=== PATIENT | male | born 1940 | race Caucasian/White ===

== ENCOUNTER 2022-08-29 12:29 | Outpatient (CLI) | payer MEDICARE, OTHER | END 2022-08-29 12:30 | disposition critical access hospital (66) | LOC: EMS 12:29 | DX: R55 Syncope and collapse (principal) | CPT/HCPCS: A0425; A0427 ==

== ENCOUNTER 2022-08-29 12:32 | Emergency (ER) | payer MEDICARE, OTHER ==
--- NOTE | 2022-08-29 12:53 | XRAY Report ---
PROCEDURE: Chest 1 View X-Ray INDICATIONS: Chest Pain TECHNIQUE: One view of the chest was acquired. COMPARISON: None. FINDINGS: Surgical changes and devices: Postmedian sternotomy and CABG. Lungs and pleura: No pleural effusions or pneumothorax. Lungs are clear. Mediastinum: Mediastinal contours appear normal. Asymmetric elevation of the right hemidiaphragm. H eart size is normal. Bones and chest wall: No suspicious bony lesions. Overlying soft tissues appear unremarkable. IMPRESSION: No acute cardiopulmonary abnormality. Reviewed by: Jose Alejandro Rodriguez MD on 08/29/2022 11:52 AM [facility] Approved by: Jose Alejandro Rodriguez MD on 08/29/2022 11:52 AM [facility] Station ID: [id number]
[2022-08-29 12:57] LABS: BASOPHILS # (AUTO) 0.1 10^3/uL (0.0-0.1); BASOPHILS % (AUTO) 0.9 %; EOSINOPHILS # (AUTO) 0.3 10^3/uL (0.0-0.7); EOSINOPHILS % (AUTO) 5.5 %; HCT - HEMATOCRIT 45.1 % (42.0-52.0); HGB - HEMOGLOBIN 14.9 g/dL (14.0-18.0); LYMPHOCYTES % (AUTO) 34.2 %; MEAN CORPUSCULAR HEMOGLOBIN 30.3 pg (27.0-31.0); MEAN CORPUSCULAR VOLUME 91.7 fL (80.0-94.0); MEAN PLATELET VOLUME 11.2 fL (7.4-11.4); MONOCYTES # (AUTO) 0.6 10^3/uL (0.0-1.0); MONOCYTES % (AUTO) 9.8 %; NEUTROPHILS # (AUTO) 2.9 10^3/uL (1.5-6.6); NEUTROPHILS % (AUTO) 49.4 %; PLT - PLATELET COUNT 165 10^3/uL (130-450); RED BLOOD COUNT 4.92 10^6/uL (4.70-6.10); RED CELL DISTRIBUTION WIDTH 13.3 % (12.0-15.0); WHITE BLOOD COUNT 5.8 x10^3/uL (4.8-10.8)
--- NOTE | 2022-08-29 12:58 | ED Physician Documentation ---
History of Present Illness - Stated complaint Stated Complaint: SYNCOPE - Chief complaint Chief Complaint: Neuro - Additonal information Additional information: 81-year-old male presents emergency department for evaluation of a syncopal epis ode. Over the last few days there have been some mild flulike symptoms running through the family that have included some cough and diarrhea. The patient thought that he was going to have a watery bowel movement and he sat on the toilet. He states that he sat for a long period of time perhaps up to 20 minutes but did not have a bowel movement he then stood up and was walking back into the bedroom when he suddenly fainted. He crashed to the ground and his family came into the room where he had regained consciousness. No history of syncope in the past. Past medical history is most significant Hypertension as well as coronary artery disease status post four-vessel CABG. He is also a diabetic. Reports well- controlled sugars. For EMS he was noted to have an initial blood pressure of 130/70 but it did drop about 20 points when he stood. He has not been tachycardic. Denying chest pain or shortness of air. After the fall he is denying any headache neck or back pain. Review of Systems Constitutional: denies: Fever, Chills Nose: reports: Reviewed and negative Throat: reports: Reviewed and negative Cardiac: denies: Chest pain / pressure, Palpitations Respiratory: denies: Cough GI: reports: Diarrhea : reports: Reviewed and negative Skin: reports: Reviewed and negative Neurologic: reports: Syncope. denies: Numbness, Difficulty speaking, Seizure, Confused, Headache, Head injury, LOC PD PAST MEDICAL HISTORY - Allergies Allergies/Adverse Reactions: Allergies Allergy/AdvReac Type Severity Reaction Status Date / Time No Known Drug Allergies Allergy Verified 08/29/22 12:46 PD ED PE NORMAL - General General: Alert and oriented X 3, No acute distress - HEENT HEENT: PERRL, Moist mucous membranes, Pharynx benign - Neck Neck: Supple, no meningeal sign, No adenopathy, C-Spine cleared by NEXUS criteria - Cardiac Cardiac: RRR, No murmur - Respiratory Respiratory: No respiratory distress, Clear bilaterally - Abdomen Abdomen: Normal bowel sounds, Soft - Back Back: No CVA TTP, No spinal TTP (No crepitus step-off or deformity with palpation of the cervical thoracic or lumbar spine. 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 No: Prolonged QT QRS: Normal Ischemia: Non specific changes Compare to prior EKG: Old EKG unavailable Computer interpretation: Agree with computer - Labs Labs: Laboratory Tests 08/29/22 08/29/22 08/29/22 12:48 12:48 12:48 WBC 5.8 RBC 4.92 Hgb 14.9 Hct 45.1 MCV 91.7 MCH 30.3 MCHC 33.0 RDW 13.3 Plt Count 165 MPV 11.2 Neut # (Auto) 2.9 Lymph # (Auto) 2.0 [place] # (Auto) 0.6 Eos # (Auto) 0.3 Baso # (Auto) 0.1 Absolute Nucleated RBC 0.00 Nucleated RBC % 0.0 Sodium 139 Potassium 4.1 Chloride 103 Carbon Dioxide 23 Anion Gap 13.0 BUN 26 H Creatinine 1.1 Estimated GFR (MDRD) 65 L Glucose 151 H Calcium 9.5 Total Bilirubin 0.6 AST 50 H ALT 43 Alkaline Phosphatase 66 Troponin I High Sens 7.9 Total Protein 7.3 Albumin 3.9 Globulin 3.4 Albumin/Globulin Ratio 1.1 Lipase 30 - Rads (name of study) cxr Radiology: Final report received (No acute cardiopulmonary process) PD MEDICAL DECISION MAKING - ED course Complexity details: reviewed results, re-evaluated patient, considered differential, d/w patient ED course: 81-year-old male comes the emergency department for evaluation of a syncopal episode. He is visiting [facility] from [place]. He and his family have had some mild flulike symptoms that have included diarrhea over the last few d ays. He thought he was going to have a watery bowel movement and sat on the toilet for about 20 minutes though he did not defecate. When he stood up and walked into the bedroom he then fainted. Lapse of consciousness was very brief perhaps just a few seconds. On presentation to the emergency department he was alert and well-appearing. He had unremarkable vital signs though the paramedics had noted that he had some mild orthostatic hypotension. When they stood him at the scene. Here in the ER he did have a screening EKG that showed no ischemia. Chest x-ray was negative. CBC and electrolytes did not show any worrisome findings. His troponin was negative and he is free of chest pain. We did give him a liter of IV fluids and rechecked orthostatic vital signs which were negative. On reevaluation he reports that he is feeling markedly better. I suspect some mild dehydration as the cause of orthostasis and syncope. His BUN was mildly elevated at 25. This is likely due to the diarrhea over the last few days. At this time he is feeling markedly improved and wishes to be discharged home. Emergent return precautions were discussed for worsening symptoms. Departure - Departure Disposition: 01 Home, Self Care Clinical Impression: Syncope due to orthostatic hypotension, Dehydration Condition: Stable Record reviewed to determine appropriate education?: Yes Comments: Clearance you came to the emergency department because you had a fainting episode at home after he sat on the toilet for a bit trying to defecate. The paramedics noted that your blood pressure was a little low when you stood up. You probably had some mild dehydration over the last few days and sitting on the toilet simply trapped much of the blood in your lower extremities so when you stood you are already dehydrated then you fainted. Here in the emergency department we did obtain a CBC and electrolytes that did not show anything worrisome though you do appear mildly dehydrated. In the emergency department your EKG and chest x-ray were without acute worrisome findings. We did give you a liter of IV fluids and on reevaluation you are feeling better. I encourage you to drink plenty of fluids over the next few days. If at any point you develop sudden severe chest pain, have shortness of breath, any recurrent syncopal episodes then please return immediately to the ER for a second evaluation. When you return to [place] I encourage you to discuss this ED visit with your primary care doctor.
[2022-08-29 13:11] LABS: ALBUMIN 3.9 g/dL (3.2-5.5); ALBUMIN/GLOBULIN RATIO 1.1 (1.0-2.2); BILIRUBIN,TOTAL 0.6 mg/dL (0.2-1.0); CALCIUM 9.5 mg/dL (8.5-10.3); CREATININE 1.1 mg/dL (0.6-1.2); POTASSIUM 4.1 mmol/L (3.5-5.0); TOTAL PROTEIN 7.3 g/dL (6.7-8.2)
[2022-08-29 13:54] VITALS: BP 112/59
== END 2022-08-29 14:30 | disposition home or self-care (01) ==
LOC: ED 12:32
DX: R55 Syncope and collapse (principal); E86.0 Dehydration
CPT/HCPCS: 36415; 80053; 83690; 84484; 85025; 93005; 99283; 99284